=== PATIENT | male | born 1975 | race Caucasian/White ===

== ENCOUNTER 2021-08-18 13:22 | Emergency (ER) | payer BC ==
[~2021-08-18] VITALS: Ht 180.3 cm; Wt 97.5 kg
[2021-08-18 13:22] VITALS: BP_SYST 176
--- NOTE | 2021-08-18 13:22 | NUR ---
BROUGHT BACK TO HALLWAY BED AND TRIAGED. PT STATES PANIC ATTACK THE LAST FEW NIGHTS BUT WORSE LAST NIGHT AND TODAY. STATES HE HAS HAD A PANIC ATTACK BEFORE AND GOT A FULL WORKUP, INCLUDING CT, TREADMILL TEST. STATES NOTHING WAS FOUND.
--- NOTE | 2021-08-18 14:30 | NUR ---
DR IVERSON AT BEDSIDE FOR EVALUATION
[2021-08-18 15:08] LABS: BASOPHILS # (AUTO) 0.1 K/uL (0.0-0.2); BASOPHILS % (AUTO) 0.9 % (0.0-2.0); EOSINOPHILS % (AUTO) 0.7 % (0.0-4.0); HEMATOCRIT 43.4 % (36-54); HEMOGLOBIN 15.1 g/dL (14.0-18.0); LYMPHOCYTES # (AUTO) 1.3 K/uL (1.0-5.5); LYMPHOCYTES % (AUTO) 23.1 % (20.5-51.5); MEAN CORPUSCULAR HEMOGLOBIN 30 pg (27-31); MEAN CORPUSCULAR HGB CONC 35 % (32-36); MEAN CORPUSCULAR VOLUME 85 fL (79.0-98.0); MONOCYTES # (AUTO) 0.4 K/uL (0.0-1.0); MONOCYTES % (AUTO) 7.9 % (1.7-9.3); NEUTROPHILS # (AUTO) 3.8 K/uL (1.8-7.7); NEUTROPHILS % (AUTO) 67.4 % (40.0-70.0); PLATELET COUNT (AUTO) 317 K/uL (130-430); RED BLOOD CELL COUNT(AUTO) 5.09 MIL/uL (4.2-6.2); RED CELL DISTRIBUTION WIDTH 13.5 % (9.0-15.0); WHITE BLOOD COUNT (AUTO) 5.6 K/uL (4.8-10.8)
[2021-08-18 15:26] LABS: ANION GAP 4 (5-15); CALCIUM 8.3 mg/dL (8.4-11.0); CHLORIDE 105 mmol/L (98-107); CREATININE 1.01 mg/dL (0.55-1.30); GLUCOSE 100 mg/dL (70-99); POTASSIUM 3.6 mmol/L (3.5-5.1); SODIUM SERUM 138 mmol/L (136-145); UREA NITROGEN, BLOOD 12 mg/dL (8-21)
[2021-08-18 15:35] LABS: ALANINE AMINOTRANSFERASE 43 U/L (12-78); ALBUMIN 4.2 g/dL (3.4-4.8); ASPARTATE AMINOTRANSFERASE 34 U/L (10-37)
--- NOTE | 2021-08-18 15:55 | NUR ---
DR IVERSON AT BEDSIDE SPEAKING WITH PT REGARDING TEST RESULTS
[2021-08-18 16:05] LABS: GFR AFRICAN AMERICAN 103 mL/min (>90)
[2021-08-18] MEDS ORDERED: HYDR50SY PO (16:10)
--- NOTE | 2021-08-18 16:16 | NUR ---
Patient given written and verbal discharge instructions and verbalizes understanding. ER MD discussed with patient the results and treatment provided. Patient in stable condition. ID arm band removed. Rx of HYDROXYZINE given. Patient educated on pain management and to follow up with PMD. Pain Scale 0/10. Opportunity for questions provided and answered. Medication side effect fact sheet provided.
== END 2021-08-18 16:14 | disposition home or self-care (01) ==
LOC: SED 13:22
DX: F41.9 Anxiety disorder, unspecified (principal); R07.89 Other chest pain
CPT/HCPCS: 36415; 71045; 80053; 84484; 85025; 93005; 99285